=== PATIENT | female | born 1975 | race Caucasian/White ===

== ENCOUNTER 2016-08-25 18:30 | Emergency (ER) | payer OTHER ==
[~2016-08-25] VITALS: Ht 180.3 cm; Wt 158.8 kg
[~2016-08-25 18:30] MED LIST: BACTRIM DS 8001 TA1 PO; ULTRAM50 MG PO
[2016-08-25 19:20] LABS: BILIRUBIN NEGATIVE (NEGATIVE); BLOOD NEGATIVE (NEGATIVE); CLARITY CLOUDY (CLEAR); COLOR YELLOW (YELLOW); GLUCOSE NEGATIVE (NEGATIVE); KETONE NEGATIVE (NEGATIVE); LEUKO ESTERASE 2+ (NEGATIVE); NITRITE NEGATIVE (NEGATIVE); PH 6.5 (5.0-9.0); PROTEIN TRACE (NEGATIVE)
[2016-08-25 19:32] LABS: BACTERIA 3+; EPITHELIAL CELLS TNTC; RBC 0-2 rbc/hpf (0-2)
[2016-08-25 19:33] LABS: URINE REFLEX COMMENT YES (NO)
[2016-08-25] MEDS ORDERED: MACROBID100 M1 PO (19:50)
== END 2016-08-25 19:57 | disposition home or self-care (01) ==
LOC: ED 18:30
PROVIDERS: Nurse Practitioner Family
DX: N39.0 Urinary tract infection, site not specified (principal); Z88.0 Allergy status to penicillin; Z88.6 Allergy status to analgesic agent; Z91.040 Latex allergy status